=== PATIENT | female | born 1970 | race African-American/Black ===

== ENCOUNTER 2019-02-27 12:26 | Emergency (ER) | payer OTHER ==
[~2019-02-27] VITALS: Ht 160 cm; Wt 74.4 kg
[~2019-02-27 12:26] MED LIST: IRON325 PO; NEXIUM40 MG PO; NORVASC 5 MG TAB5 MG PO; PENICILLIN VK250 MG PO; PERCOCET 5-3251 EACH PO
[2019-02-27] MEDS ORDERED: NORVASC 2.5 MG2.5 M1 PO (12:42)
[2019-02-27] MEDS ORDERED: CLONIDINE HCL0.2 M2 PO (12:43)
[2019-02-27 13:08] VITALS: BP 197/111
[2019-02-27 13:11] LABS: HEMATOCRIT 27.9 % (37.0-47.0); HEMOGLOBIN 8.4 gm/dL (12.0-15.0); MCH 19.9 pg (26.0-34.0); MCHC 30.2 g/dL (28.0-37.0); MCV 65.9 fL (80.0-100.0); PLATELET COUNT 397 thou/uL (150-400); RBC 4.24 mil/uL (4.20-5.00); RDW 20.7 % (10.5-14.5); WBC 6.9 thou/uL (4.0-11.0)
[2019-02-27 13:15] LABS: ANION GAP 10 mmol/L (7-16); BUN 10 mg/dL (7-18); CALCIUM 9.4 mg/dL (8.5-10.1); CHLORIDE 103 mmol/L (98-107); CO2 27 mmol/L (21-32); CREATININE 0.8 mg/dL (0.6-1.0); GLUCOSE 118 mg/dL (74-106); POTASSIUM 3.4 mmol/L (3.5-5.1); SODIUM 140 mmol/L (136-145)
[2019-02-27 13:21] LABS: ALBUMIN 3.7 g/dL (3.4-5.0); DIRECT BILIRUBIN < 0.1 mg/dL (<0.1-0.2); SGOT 11 U/L (15-37); SGPT 15 U/L (30-65); TOTAL BILIRUBIN 0.4 mg/dL (<0.1-1.0); TOTAL PROTEIN 8.1 g/dL (6.4-8.2); URINE BILIRUBIN NEGATIVE (Negative); URINE BLOOD NEGATIVE (Negative); URINE CLARITY CLEAR; URINE COLOR YELLOW; URINE GLUCOSE-RANDOM* NEGATIVE (Negative); URINE KETONES NEGATIVE (Negative); URINE LEUKOCYTES-REFLEX NEGATIVE (Negative); URINE NITRITE-REFLEX NEGATIVE (Negative); URINE PROTEIN (DIPSTICK) NEGATIVE (Negative); URINE UROBILINOGEN 0.2 E.U./dl (0.2-1.0)
[2019-02-27 13:50] LABS: ABSOLUTE NEUTROPHILS 2.8 thou/uL (1.4-8.2)
[2019-02-27 13:51] LABS: ANISOCYTOSIS 2+; ATYPICAL LYMPHS 3 %; HYPOCHROMASIA 3+; MICROCYTES 3+; OVALOCYTES FEW
[2019-02-27] MEDS ORDERED: HYDROCHLOROTHIA25 M2 PO (16:32)
== END 2019-02-27 16:53 | disposition home or self-care (01) ==
LOC: ER 12:26
PROVIDERS: Emergency Medicine
DX: I10 Essential (primary) hypertension (principal); R20.2 Paresthesia of skin